=== PATIENT | female | born 1990 | race Caucasian/White ===

== ENCOUNTER 2017-10-19 13:15 | Emergency (ER) | payer MEDICAID, OTHER ==
[2017-10-19] MEDS ORDERED: IBUPROFEN 600 MG TAB PO ONE (13:36)
--- NOTE | 2017-10-19 13:39 | EDPHY ---
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 Patient has pain from her mid hand down to her digits. She does have a history of a old boxer's fracture. Did sustain some abrasions on the dorsum of her knuckles. No other injuries. ROS: 10 point Review of Systems is negative except as noted in the HPI. Social History: Positive smoking Family History: non-contributory Physical Exam: Gen: Awake, Alert, No Distress Right upper extremity: Right wrist, full range of motion, nontender, no deformity Right hand: She has tenderness over the distal 3rd 4th and 5th metacarpals and tenderness at the MCP joint. There is mild swelling. There is no erythema. She has got mild superficial abrasions over the dorsal 3rd 4th and 5th MCP joints. Sensations intact in the radial, median, and ulnar nerve distribution. Capillary refills less than 3 sec. Skin: No rash - Personal History LMP (Females 10-55): 1-7 Days Ago Current Tetanus/Diphtheria Vaccine: Yes Current Tetanus Diphtheria and Acellular Pertussis (TDAP): Yes Tetanus Vaccine Date: within 10 yrs - Medical/Surgical History Hx Asthma: Yes Hx Chronic Respiratory Disease: No Hx Diabetes: No Hx Cardiac Disease: No Hx Renal Disease: No Hx Cirrhosis: No Hx Alcoholism: No Hx HIV/AIDS: No Hx Splenectomy or Spleen Trauma: No Other PMH: ulcer- 2010, asthma - Social History Smoking Status: Current every day smoker Constitutional: Initial Vital Signs Temperature (C) 37.0 C 10/19/17 13:30 Heart Rate 98 10/19/17 13:30 Respiratory Rate 22 H 10/19/17 13:30 Blood Pressure 128/83 H 10/19/17 13:30 O2 Sat (%) 95 10/19/17 13:30 O2 Delivery Mode Room Air Allergies/Adverse Reactions: tramadol Allergy (Verified 02/21/15 11:16) Home Medications: Medication Instructions Recorded Albuterol 02/21/15 Hydrocodone/Acetaminophen 1 - 2 each PO Q4-6PRN PRN #10 10/19/17 [Hydrocodon-Acetaminophen 5-325] tablet Medical Decision Making - Diagnostics Imaging Results: Imaging Impressions Hand X-Ray 10/19/17 13:34 Impression: There is no acute osseous abnormality identified. Imaging: I viewed and interpreted images myself ED Course/Re-evaluation: No fracture on x-ray. Patient has been placed in a volar splint for comfort. Will follow up with workman's Comp. Tylenol and ibuprofen for pain. Ice. I have inspected the splint. She has good immobility with normal perfusion. - Data Points Medications Given: Discontinued Medications Ibuprofen (Motrin) 600 mg PO EDNOW ONE Stop: 10/19/17 13:37 Last Admin: 10/19/17 13:47 Dose: 600 mg Departure - Departure Disposition: Home, Routine, Self-Care Clinical Impression: Hand sprain Condition: Good Instructions: Splint Care (ED), Hand Sprain (ED), R.I.C.E. Treatment (ED) Additional Instructions: Follow up with workman's Comp in 3-4 days for recheck. Referrals: Work Comp Referral [facility] [place] [Outside] - As per Instructions Prescriptions: Hydrocodone/Acetaminophen [Hydrocodon-Acetaminophen 5-325] 1 - 2 each PO Q4- 6PRN PRN #10 tablet PRN Reason: Pain, Severe
[2017-10-19 14:30] VITALS: BP 133/87
== END 2017-10-19 14:42 | disposition home or self-care (01) ==
LOC: CED 13:15
DX: S63.91XA Sprain of unspecified part of right wrist and hand, initial encounter (principal); J45.909 Unspecified asthma, uncomplicated; F17.200 Nicotine dependence, unspecified, uncomplicated; W18.40XA Slipping, tripping and stumbling without falling, unspecified, initial encounter; Y92.69 Other specified industrial and construction area as the place of occurrence of the external cause; Y99.0 Civilian activity done for income or pay; Y93.89 Activity, other specified
CPT/HCPCS: 73130-PO